=== PATIENT | female | born 1990 ===

== ENCOUNTER 2017-04-19 11:45 | Emergency (ER) ==
[~2017-04-19] VITALS: Ht 160 cm; Wt 56.8 kg
[2017-04-19 11:46] VITALS: BP 121/82
[2017-04-19] MEDS ORDERED: ACETAMINOPHEN TAB 650MG DOSE (2X325MG) PO ONE (13:45)
[2017-04-19 14:06] LABS: BASO % 0.4 % (0.0-1.0); EOS # 0.1 10^3/uL (0.0-0.50); EOS % 0.9 % (0.0-3.0); IMMATURE GRANULOCYTE % 0.1 % (0-0); LYMPH % 29.4 % (24.0-44.0); MEAN CORPUSCULAR HEMOGLOBIN 30.8 pg (27.0-33.0); MEAN CORPUSCULAR HGB CONC 34.4 g/dl (32.0-36.5); MEAN CORPUSCULAR VOLUME 89.5 fl (80.0-96.0); MONO # 0.4 10^3/uL (0.0-0.8); MONO % 5.8 % (0.0-5.0); NEUTROPHILS # 4.3 10^3/uL (1.8-7.7); NEUTROPHILS % 63.4 % (36.0-66.0); PLATELET COUNT, AUTOMATED 351 10^3/uL (150-450); WHITE BLOOD COUNT 6.7 10^3/uL (4.0-10.0)
[2017-04-19 14:13] LABS: CONTROL LINE HCG INT CTR LINE PRESENT
[2017-04-19 14:24] LABS: ANION GAP 6 MEQ/L (8-16); BLOOD UREA NITROGEN 6 MG/DL (7-18); CALCIUM LEVEL 8.7 MG/DL (8.5-10.1); CARBON DIOXIDE LEVEL 25 MEQ/L (21-32); CHLORIDE LEVEL 109 MEQ/L (98-107); CREATININE FOR GFR 0.49 MG/DL (0.55-1.02); GLOMERULAR FILTRATION RATE > 60.0 (>60); GLUCOSE, FASTING 91 MG/DL (70-105); POTASSIUM SERUM 3.5 MEQ/L (3.5-5.1); SODIUM LEVEL 140 MEQ/L (136-145)
--- NOTE | 2017-04-19 15:10 | REP ---
FIRST TRIMESTER ULTRASOUND: Real-time sonographic evaluation of the pelvis performed utilizing transabdominal and endovaginal technique. The uterus measures 7.5 x 4.3 x 5.1 cm. Within the endometrial canal there does appear to be a gestational sac containing a yolk sac. The mean sac diameter is 6 mm corresponding to estimated gestational age of 5 weeks 2 days. No pole is seen. Right ovary measures 3.9 x 3.8 x 4.1 cm and contains a cystic structure probably representing a corpus luteum measuring 2 cm in diameter. The left ovary is normal in size and echotexture measuring 2.7 x 1.6 x 2.6 cm. There is blood flow seen in each ovary with duplex Doppler evaluation, with no torsion, RI right ovary 0.36 and left ovary 0.48. No free fluid is seen and there is no other evidence of adnexal mass. IMPRESSION: There appears to be a very early intrauterine gestation. Estimated gestational age 5 weeks 2 days as discussed in detail above. A cystic structure in the right ovary 2 cm in diameter probably represents a corpus luteum. No torsion. No other abnormality. Signed by Андрей Delgadillo MD 04/19/2017 03:19 P
[2017-04-19 15:18] LABS: HCG, SERUM QUANTITATIVE 1850 MIU/ML
== END 2017-04-19 15:19 | disposition left against medical advice (07) ==
LOC: M ED 11:45
DX: O9A.211 Injury, poisoning and certain other consequences of external causes complicating pregnancy, first trimester (principal); M54.5 Low back pain; W10.8XXA Fall (on) (from) other stairs and steps, initial encounter; Y92.018 Other place in single-family (private) house as the place of occurrence of the external cause; Y93.89 Activity, other specified; Y99.8 Other external cause status; O99.511 Diseases of the respiratory system complicating pregnancy, first trimester; J45.909 Unspecified asthma, uncomplicated; Z3A.01 Less than 8 weeks gestation of pregnancy